=== PATIENT | female | born 1985 | race American Indian/Alaskan Native ===

== ENCOUNTER 2017-07-18 17:45 | Emergency (ER) | payer OTHER ==
[2017-07-18 17:45] VITALS: BMI 36.0
[2017-07-18 18:35] LABS: SQUAMOUS EPITHIAL 8 /hpf (0-5); URINE BILIRUBIN NEGATIVE (NEGATIVE); URINE BLOOD NEGATIVE (NEGATIVE); URINE CLARITY Hazy (Clear); URINE COLOR Yellow (YELLOW); URINE GLUCOSE (UA) NORMAL (Normal); URINE LEUKOCYTE ESTERASE TRACE Leu/uL (Negative); URINE PROTEIN NEGATIVE (NEGATIVE)
[2017-07-18 20:01] VITALS: BP 117/79; PULSE 75; RESP 18; TEMP 98.7; O2SAT 98
[2017-07-18] MEDS ORDERED: cefTRIAXone (Rocephin) 250 mg Inj IM STA (20:09)
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
== END 2017-07-18 21:15 | disposition home or self-care (01) ==
LOC: C.ER 17:45
DX: Z04.41 Encounter for examination and observation following alleged adult rape (principal)
CPT/HCPCS: 81001; 84703; 96372; 99285; J0696